=== PATIENT | male | born 1975 | race Caucasian/White ===

== ENCOUNTER → 2018-09-04 11:34 | Outpatient (CLI) | payer BC, SELFPAY ==
[2018-09-04 12:41] LABS: Influenza A and B by PCR Rapid Negative (Negative)
== END ==
PROVIDERS: Visit Provider Physician Assistant
DX: J02.9 Acute pharyngitis, unspecified (principal); R05 Cough
CPT/HCPCS: 87070; 87077; 87400

== ENCOUNTER 2022-02-09 10:21 | Outpatient (CLI) | payer OTHER, SELFPAY | END 2022-02-13 12:43 | disposition home or self-care (01) | PROVIDERS: Family Provider Physician Assistant; PCP Physician Assistant; Referring Provider Physician Assistant; Visit Provider Physician Assistant | DX: M21.371 Foot drop, right foot (principal); S76.211D Strain of adductor muscle, fascia and tendon of right thigh, subsequent encounter | CPT/HCPCS: 95886; 95913 ==

== ENCOUNTER → 2024-07-10 08:09 | Outpatient (CLI) | payer OTHER, MEDICAID, SELFPAY | PROVIDERS: Family Provider Physician Assistant; PCP Physician Assistant; Referring Provider Orthopaedic Surgery; Visit Provider Orthopaedic Surgery | DX: M54.10 Radiculopathy, site unspecified (principal) | CPT/HCPCS: 95886; 95910 ==